=== PATIENT | female | born 1960 | race Caucasian/White ===

== ENCOUNTER 2022-09-20 08:10 | Day surgery (SDC) | payer OTHER ==
[2022-09-15 11:02] VITALS: BMI 34.0
[2022-09-20] MEDS ORDERED: PROPOFOL 100 ML ONE (08:18)
[2022-09-20 08:35] VITALS: RESP 18
[2022-09-20 09:56] VITALS: TEMP 97.2
[2022-09-21 13:35] VITALS: BP 105/75; PULSE 78
== END 2022-09-20 10:30 | disposition home or self-care (01) ==
LOC: FASU-ENDO 08:10
PROVIDERS: ATTEND Internal Medicine Gastroenterology
PROC: 0DBN8ZX Excision of Sigmoid Colon, Via Natural or Artificial Opening Endoscopic, Diagnostic (ICD-10-PCS; 2022-09-20)
PROC: 0DBP8ZX Excision of Rectum, Via Natural or Artificial Opening Endoscopic, Diagnostic (ICD-10-PCS; 2022-09-20)
PROC: 0DBM8ZX Excision of Descending Colon, Via Natural or Artificial Opening Endoscopic, Diagnostic (ICD-10-PCS; principal; 2022-09-20 09:24)
DX: Z12.11 Encounter for screening for malignant neoplasm of colon (principal); K63.5 Polyp of colon; K64.1 Second degree hemorrhoids; K57.30 Diverticulosis of large intestine without perforation or abscess without bleeding; K62.1 Rectal polyp
CPT/HCPCS: 88305-TC